=== PATIENT | female | born 1990 | race Caucasian/White ===

== ENCOUNTER → 2017-05-29 | Outpatient (CLI) | payer OTHER ==
--- NOTE | 2017-05-29 09:45 | KCIC ---
Complete abdominal ultrasound dated 05/29/2017. No comparison available. Clinical indication: Right upper quadrant pain. FINDINGS: Liver is of diffuse increased echogenicity and appears somewhat enlarged. No apparent hepatic mass. Intrahepatic and extra hepatic biliary tree normal in caliber. Common bile duct measures 6 mm. There are echogenic shadowing foci within the gallbladder lumen. No gallbladder wall thickening or pericholecystic fluid. Right kidney measures 11.7 cm in length. Left kidney measures 11.5 cm in length. No hydronephrosis. Spleen is homogeneous in echogenicity and measures 13.3 cm longitudinal dimension. There are splenic granuloma. Limited visual is portions of pancreas aorta and IVC unremarkable. No significant ascites. IMPRESSION: 1. Cholelithiasis with no secondary signs of acute cholecystitis. 2. Fatty infiltration the liver. 3. Mild hepatosplenomegaly. Electronically signed by: Felice Barrientos MD (05/29/2017 9:42 AM) [id number]
== END | disposition home or self-care (01) ==
LOC: KCIC US 07:51
PROVIDERS: ATTEND Nurse Practitioner Family
DX: K80.20 Calculus of gallbladder without cholecystitis without obstruction (principal); K76.0 Fatty (change of) liver, not elsewhere classified; R16.2 Hepatomegaly with splenomegaly, not elsewhere classified
CPT/HCPCS: 76700